=== PATIENT | male | born 1995 | race Caucasian/White ===

== ENCOUNTER 2018-02-10 21:32 | Emergency (ER) | payer OTHER ==
[~2018-02-10] VITALS: Ht 170.2 cm; Wt 72.6 kg
[2018-02-11] MEDS ORDERED: AMOX-CLAV 875-1 EACH PO (03:07)
[2018-02-11] MEDS ORDERED: KETO10TA2 PO (03:07)
== END 2018-02-11 03:00 | disposition home or self-care (01) ==
LOC: ER 21:32
DX: L02.511 Cutaneous abscess of right hand (principal)